=== PATIENT | male | born 1940 | race Caucasian/White ===

== ENCOUNTER 2019-01-11 10:54 | Outpatient (CLI) | payer MEDICARE ==
--- NOTE | 2019-01-11 11:32 | RAD ---
LUMBAR SPINE 3 VIEWS: HISTORY: Pain. COMPARISON: None. FINDINGS: Five lumbar-type vertebral bodies. Lumbar spine vertebral body height is maintained. No fracture. There is straightening of normal lumbar lordosis. No spondylolisthesis or spondylolysis. Disk space heights are preserved. Incidental IVC filter is noted. Atherosclerosis of the aorta is identified. IMPRESSION: No radiographic evidence of significant degenerative change. POS: [facility]
== END 2019-01-11 10:55 | disposition home or self-care (01) ==
LOC: RAD-FRANK 10:54
PROVIDERS: ATTEND Nurse Practitioner Family
DX: M54.5 Low back pain (principal)
CPT/HCPCS: 72100

== ENCOUNTER 2019-04-14 11:37 | Outpatient (CLI) | payer MEDICARE ==
--- NOTE | 2019-04-14 12:10 | RAD ---
2 views of the chest: 04/14/2019 COMPARISON: 10/14/2016 HISTORY: Palpitations FINDINGS: No pneumothorax or pleural fluid is seen. There is no focal consolidation or alveolar edema . There is increased linear density in the right lung base suggesting scar stable scar with stable blunting of the costophrenic angle on the left. Heart and mediastinal contours are unchanged. Right l shaun is clear. Coronary arterial calcification and/or stent material present. IMPRESSION: Stable appearance of the chest demonstrating chronic findings as above.
== END 2019-04-14 11:38 | disposition home or self-care (01) ==
LOC: RAD-FRANK 11:37
PROVIDERS: ATTEND Nurse Practitioner Family
DX: R00.2 Palpitations (principal); J98.4 Other disorders of lung
CPT/HCPCS: 71046

== ENCOUNTER 2020-03-20 14:52 | Inpatient (IN) | payer MEDICARE ==
--- NOTE | 2020-03-20 15:31 | RAD ---
EXAM: Single view of the chest HISTORY: Chest pain COMPARISON: 05/14/2019 FINDINGS: Single view of the chest shows a normal sized cardiomediastinal silhouette. The patient is status post sternotomy. There is no evidence of consolidation, mass, or pleural effusion. The bones are unremarkable. IMPRESSION: No evidence of acute cardiopulmonary disease
[2020-03-20 16:17] LABS: #Basophils 0.1 thou/uL (0.0-0.2); #Lymphocytes 1.4 thou/uL (1.20-3.40); #Monocytes 0.5 thou/uL (0.11-0.59); #Neutrophils 7.1 thou/uL (1.40-6.50); %Basophils 0.8 % (0.0-1.0); %Eosinophils 0.3 % (0.0-10.0); %Lymphocytes 15.2 % (21.0-51.0); %Monocytes 5.3 % (0.0-10.0); %Neutrophils 78.5 % (42.0-75.0); Hemoglobin 14.8 g/dL (14.0-18.0); Mean Corpuscular Hemoglobin 32.6 pg (27.0-31.0); Mean Corpuscular Volume 95.7 fL (78.0-98.0); Mean Platelet Volume 8.8 fL (7.4-10.4); Platelet Count 189 thou/uL (130-400); RBC Distribution Width 12.8 % (11.5-14.5); Red Blood Cell (RBC) Count 4.56 mill/uL (4.70-6.10)
[2020-03-20 16:39] LABS: ALT (SGPT) 14 U/L (8-55); AST (SGOT) 18 U/L (5-34); Albumin 3.8 g/dL (3.4-4.8); Alkaline Phosphatase 70 U/L (40-110); Anion Gap 13 mmol/L (10-20); BUN (Urea Nitrogen) 14 mg/dL (8.4-25.7); Bilirubin, Total 0.9 mg/dL (0.2-1.2); Calc. Creatinine Clearance 0 mL/min (70-130); Calcium 9.1 mg/dL (7.8-10.44); Carbon Dioxide 22 mmol/L (23-31); Chloride 106 mmol/L (98-107); Estimated GFR-MDRD 69; Globulin 2.4 g/dL (2.4-3.5); Glucose 147 mg/dL (83-110); Potassium 3.8 mmol/L (3.5-5.1); Protein, Total 6.2 g/dL (5.8-8.1); Sodium 137 mmol/L (136-145)
[2020-03-20 18:34] VITALS: BMI 18.2
[2020-03-20] MEDS ORDERED: Acetaminophen 325 MG TAB PO PRN ×2 (18:36→18:55)
[2020-03-20] MEDS ORDERED: Ondansetron PF 4 MG/2 ML Vial IVP PRN (18:36)
[2020-03-20] MEDS ORDERED: Ondansetron ODT 4 MG TAB SL PRN (18:36)
[2020-03-20] MEDS ORDERED: Nitroglycerin 0.4 MG TAB (25 Tab Bottle) PO PRN (18:55)
[2020-03-20] MEDS ORDERED: Ondansetron ODT 4 MG TAB PO PRN (18:55)
[2020-03-20] MEDS ORDERED: traMADol HCl 50 MG TAB PO SCH (19:15)
--- NOTE | 2020-03-20 20:05 | HP ---
PRIMARY CARE PROVIDER: Nurse practitioner, maricel Flores Jesus. CHIEF COMPLAINT: Back pain. HISTORY OF PRESENT ILLNESS: This is a 79-year-old male, with history of coronary artery disease and CABG in April 2019; hypertension; dyslipidemia; and chronic osteoarthritis, on tramadol, who presents to the emergency room with a chief complaint of back pain. Patient reports it started 5 to 6 months ago approximately one month after his CABG. It is located in between his shoulder blades, and he describes it as a pressure or pushing sensation. He denies any radiation, states that the pain is constant, however, states it is completely relieved with lying flat. He reports the onset of pain with about 30 steps and denies any pain prior to that. He also has pain with any physical activity that is relieved with lying flat. He denies any nausea or vomiting, denies any cough or shortness of breath, denies any other precipitating or relieving factors. Patient has osteoarthritis in his legs, hips, and arms, for which he takes tramadol and Aleve 4 times a day. He also complains in the emergency room today that he "blacked out for" for a few seconds. States time passed by for about a minute that he was not aware. He denies any positional changes associated with that. Patient reports that when the pain is worse that he feels dizzy. He denies any spinning sensation in the room, denies any vision changes. The pain is as severe as 8 or 9/10, currently it is 4/10. Patient also complains of occasional chest pain, however, not significant in comparison to the back pain. In the emergency room, patient was evaluated, he did not receive any medication , and hospitalist called for admission. PAST MEDICAL HISTORY: 1. Coronary artery disease with history of CABG. 2. Hypertension. 3. Dyslipidemia. 4. Osteoarthritis. PAST SURGICAL HISTORY: 1. Coronary artery stent placement in 2004. 2. CABG in April 2019. FAMILY HISTORY: Significant for a brother with diabetes and hypertension. SOCIAL HISTORY: Patient lives alone. He denies alcohol or tobacco, his brother is his surrogate decision maker. He is a full code. CURRENT MEDICATIONS: Reconciled with the bottles. 1. Lisinopril 10 mg daily. 2. Atorvastatin 10 mg daily. 3. Tramadol 50 mg two tablets scheduled four times a day. 4. Aspirin 325 mg daily. 5. Magnesium, unknown dose, t.i.d. 6. Aleve 1 tablet four times a day. ALLERGIES: NO ALLERGIES TO MEDICATION. REVIEW OF SYSTEMS: Positive for constipation; backing out episode, which is not well described in the emergency room today; and some intermittent chest pain. Negative for fevers, chills, cough, nausea, vomiting, or abdominal pain. All remaining review of systems are reviewed and negative. PHYSICAL EXAMINATION: VITAL SIGNS: Temp 98.0, pulse 66, respirations 19, sat 98% on room air, and blood pressure 129/71. GENERAL: Awake, alert, and responsive, in no apparent distress. Able to speak in full sentences. HEENT: His pupils are equal and round. No scleral icterus. NECK: Supple and nontender. No audible carotid bruits. LYMPHATICS: No palpable cervical or supraclavicular lymphadenopathy. LUNGS: Clear to auscultation, bilateral. No audible wheezing, rhonchi, or rales. HEART: Normal S1, S2. Regular rate and rhythm. No significant murmurs. ABDOMEN: Soft. Present bowel sounds. Nontender and nondistended. EXTREMITIES: No clubbing, cyanosis, or edema. BACK EXAM: He does have a curvature to the right in the mid thoracic area. No tenderness to palpation and no other visible or palpable abnormalities. VASCULAR: He has 2+ radial pulses. SKIN: No visible rashes. NEUROLOGIC: No focal deficits. PSYCH: Appears euthymic. LABORATORY DATA: Reviewed. CBC; 9, 14.8, 43.6, and 189. Renal panel; 137, 3.8, 106, 22, 14, 1.04, and 147. LFTs are normal. BNP 123. Troponin is negative. Chest x-ray is personally reviewed. No acute process. EKG. It is a left axis deviation, sinus rhythm, abnormal R-wave progression, no ST changes. IMPRESSION: 1. Back pain in a gentleman with curvature on exam, as well as a cardiac history. 2. Intermittent chest pain in a post coronary artery bypass grafting patient. 3. Hypertension, appears controlled. 4. Osteoarthritis. 5. Dyslipidemia. 6. Constipation. PLAN: 1. Observation status in the hospital. 2. Check troponins tonight, echocardiogram, Cardiology consultation. 3. MRI of the thoracic spine to evaluate for source of the back pain. 4. Continuing his usual home medications. Add p.r.n. nitroglycerin. 5. Continue the tramadol scheduled for pain. 6. Heart-healthy diet. 7. Bowel medications. We will schedule and add p.r.n. options. 8. DVT prophylaxis. He is ambulatory. 9. GI prophylaxis. As the patient is on chronic NSAIDs, we will add a Protonix and see if that changes any of his symptoms. 10. Code status is full. Surrogate decision maker is the patient's brother. 11. Anticipated length of stay is less than two midnights. Reviewed the plan of care with the patient, who demonstrates understanding and agrees. No questions or further needs at the end of evaluation. Job ID: [id number] [facility]
[2020-03-20] MEDS: Senokot S 8.6-50 MG TAB PO SCH (20:36)
[2020-03-20] MEDS: Atorvastatin Calcium 10 MG TAB PO SCH (20:36)
[2020-03-20] MEDS ORDERED: Aspirin 325 MG TAB PO SCH (21:00)
[2020-03-21] MEDS: traMADol HCl 50 MG TAB PO SCH ×5 (00:11→23:14)
[2020-03-21 05:22] LABS: Anion Gap 12 mmol/L (10-20); BUN (Urea Nitrogen) 15 mg/dL (8.4-25.7); Calc. Creatinine Clearance 58 mL/min (70-130); Calcium 8.7 mg/dL (7.8-10.44); Carbon Dioxide 25 mmol/L (23-31); Chloride 106 mmol/L (98-107); Estimated GFR-MDRD Greater than 90; Glucose 89 mg/dL (83-110); Potassium 3.6 mmol/L (3.5-5.1); Sodium 139 mmol/L (136-145)
[2020-03-21] MEDS ORDERED: ADENOSINE 60 MG/20 ML VIAL ONE (09:29)
--- NOTE | 2020-03-21 13:12 | NM ---
EXAM: NM Cardiac Stress W EF WF PROVIDED CLINICAL HISTORY: Chest pain COMPARISON: 10/14/2016 FINDINGS: There is decreased uptake of radiotracer with overall fixed defects involving the distal anterior wal l as well as involving the mid and distal inferior left ventricular wall and distal septum. Quantitative analysis demonstrates minimal reversibility adjacent to regions of fixed defect. Gated i mages demonstrate hypokinesis involving the septum with diminished thickening seen involving the distal anterior and inferior left ventricular teresa. Calculated left ventricular ejection fraction is 51% which is stable compared to study in 2017. IMPRESSION: 1. Abnormal myocardial perfusion study with scarring involving the distal anterior and inferior left ventricular teresa. Findings are suggestive of infarction in these regions with minimal wilbur-infarct ischemia present. 2. Left ventricular ejection fraction of 51% which is stable compared to study in 2017.
--- NOTE | 2020-03-21 13:24 | MRI ---
Exam: Thoracic spine MRI without contrast HISTORY: Midthoracic back pain. COMPARISON: None FINDINGS: Appropriate T1 marrow signal intensity of the thoracic vertebra. Thoracic spine vertebral b shaila heights are maintained. No fracture. Intrinsic T1 and T2 hyperintense lesion in the T2 and T5 compatible with osseous hemangiomas. No significant STIR hyperintensity to suggest vertebral body faisal ma or ligamentous injury Axial images are limited due to motion degradation. No mediastinal mass. No lung parenchymal abnormal ities. Visualized solid organs and paraspinal muscles have a normal appearance The visualized thoracic cord has a normal size and signal intensity. No obvious cord malacia or cord expansion. Conus medullaris terminates beyond the mid T12 level. Grossly throughout the central spinal canal there is no significant stenosis. Thoracic neural foramina are patent. Sand Tester images for localization of restricted fusion of the lower cervical spine, incompletely evaluate d IMPRESSION: 1. Limited evaluation on the axial images due to motion degradation. No significant central canal marcelo nosis or significant neural foraminal narrowing. 2. Possible fusion of the lower cervical spine, incompletely evaluated.
[2020-03-21] MEDS: Aspirin 325 MG TAB PO SCH (13:34)
[2020-03-21] MEDS: Lisinopril 10 MG TAB PO SCH (13:34)
[2020-03-21] MEDS: Senokot S 8.6-50 MG TAB PO SCH ×2 (13:35→20:21)
[2020-03-21] MEDS: Polyethylene Glycol 3350 17 GM Packet PO SCH (13:35)
--- NOTE | 2020-03-21 17:31 | PDOC.HOSPP ---
- Subjective Encounter Date: 03/21/20 (f/u back pain) Encounter Time: 17:30 Subjective: 79 y/o male with hx of CAD/CABG admitted yesterday for back pain with exertion relieved by rest and laying flat. Pt denies any pain currently. Denies any problems breathing, n/v/abd pain. He reports the feeling is tightness between his scapula when it occurs. - Objective Vital Signs & Weight: Vital Signs (12 hours) Temp Pulse Resp BP Pulse Ox 03/21/20 16:03 98.5 F 78 10 L 127/72 97 03/21/20 15:03 98.0 F 86 18 121/68 97 03/21/20 13:29 98.6 F 72 18 136/74 96 03/21/20 08:34 99 03/21/20 07:21 97.9 F 67 17 141/83 H 99 Weight Admit Weight 123 lb 9.6 oz Weight 123 lb 9.6 oz I&O: 03/20/20 03/21/20 03/22/20 06:59 06:59 06:59 Intake Total 240 Output Total 600 Balance -360 Result Diagrams: 03/20/20 16:03 03/21/20 04:01 Radiology Reviewed by me: Yes (MRI thoracic spine - no significant abnormality) EKG Reviewed by me: Yes (tele - sinus 60's) Hospitalist ROS - Medication Medications: Active Medications Generic Name Dose Route Start Last Admin Trade Name Freq PRN Reason Stop Dose Admin Aspirin 325 mg 03/21/20 09:00 03/21/20 13:34 Aspirin PO 325 mg DAILY ALICE Administration Atorvastatin Calcium 10 mg 03/20/20 21:00 03/20/20 20:36 Lipitor PO 10 mg HS ALICE Administration Lisinopril 10 mg 03/21/20 09:00 03/21/20 13:34 Zestril PO 10 mg DAILY ALICE Administration Pantoprazole Sodium 40 mg 03/20/20 21:00 03/20/20 20:36 Protonix PO 40 mg HS ALICE Administration Polyethylene Glycol 17 gm 03/21/20 09:00 03/21/20 13:35 Miralax PO 17 gm DAILY ALICE Administration Senna/Docusate Sodium 2 tab 03/20/20 21:00 03/21/20 13:35 Senokot S PO 2 tab BID ALICE Administration Tramadol HCl 100 mg 03/20/20 23:59 03/21/20 13:35 Ultram PO 100 mg Q6HR ALICE Administration - Exam General Appearance: NAD Heart: RRR, no murmur Respiratory: CTAB, no wheezes, no rales, no ronchi Gastrointestinal: soft, non-tender, non-distended, normal bowel sounds Extremities: no cyanosis, no clubbing, no edema Psychiatric: normal affect Hosp A/P (1) Back pain Code(s): M54.9 - DORSALGIA, UNSPECIFIED Status: Chronic Qualifiers: Back pain location: thoracic back pain Back pain laterality: midline (2) Chest pain Code(s): R07.9 - CHEST PAIN, UNSPECIFIED Status: Acute Qualifiers: Chest pain type: unspecified Qualified Code(s): R07.9 - Chest pain, unspecified (3) Dyslipidemia Code(s): E78.5 - HYPERLIPIDEMIA, UNSPECIFIED Status: Chronic (4) Constipation Code(s): K59.00 - CONSTIPATION, UNSPECIFIED Status: Chronic Qualifiers: Constipation type: unspecified constipation type Qualified Code(s): K59.00 - Constipation, unspecified (5) Osteoarthritis Code(s): M19.90 - UNSPECIFIED OSTEOARTHRITIS, UNSPECIFIED SITE Status: Chronic Qualifiers: Osteoarthritis location: unspecified site (6) CAD (coronary artery disease) Code(s): I25.10 - ATHSCL HEART DISEASE OF [place] CORONARY ARTERY W/O ANG PCTRS Status: Chronic Qualifiers: Coronary Disease-Associated Artery/Lesion type: bypass graft (7) HTN (hypertension) Code(s): I10 - ESSENTIAL (PRIMARY) HYPERTENSION Status: Chronic Qualifiers: Hypertension type: essential hypertension Qualified Code(s): I10 - Essential (primary) hypertension - Plan Back pain - exertional, relieved with rest and no significant findings on MRI. - Abnormal stress test - uncertain if this is new or expected post-CABG -> Cardiology consulted - echo pending continue current meds as ordered dvt prophy - ambulatory gi prophy - not indicated code status full reviewed plan of care with patient, no questions or further needs at end of eval.
[2020-03-21] MEDS: Atorvastatin Calcium 10 MG TAB PO SCH (20:21)
[2020-03-21] MEDS ORDERED: Prevnar 13-Val Conj/PF 0.5 ML SYRINGE IM ONE (21:00)
[2020-03-22] MEDS: traMADol HCl 50 MG TAB PO SCH ×4 (05:37→23:35)
--- NOTE | 2020-03-22 07:53 | PDOC.HOSPP ---
- Subjective Encounter Date: 03/22/20 (f/u back pain) Encounter Time: 07:51 Subjective: 79 y/o male admitted from the ER for back pain with exertion relieved by rest that has progressively worsened. Since admission, pt with abnormal stress test , and MRI thoracic spine without any significant findings. Pt denies any pain or sx currently. He is sitting up, eating well. - Objective Vital Signs & Weight: Vital Signs (12 hours) Temp Pulse Resp BP Pulse Ox 03/22/20 04:00 98.0 F 61 18 131/67 97 03/21/20 23:16 136/81 Weight Admit Weight 123 lb 9.6 oz Weight 123 lb 9.6 oz I&O: 03/21/20 03/22/20 03/23/20 06:59 06:59 06:59 Intake Total 240 480 Output Total 600 Balance -360 480 Result Diagrams: 03/20/20 16:03 03/21/20 04:01 EKG Reviewed by me: Yes (tele - sinus 60-80's) Hospitalist ROS - Medication Medications: Active Medications Generic Name Dose Route Start Last Admin Trade Name Freq PRN Reason Stop Dose Admin Acetaminophen 650 mg 03/20/20 18:55 03/21/20 18:09 Tylenol PO 650 mg Q4H PRN Administration Headache/Fever/Mild Pain (1-3) Aspirin 325 mg 03/21/20 09:00 03/21/20 13:34 Aspirin PO 325 mg DAILY ALICE Administration Atorvastatin Calcium 10 mg 03/20/20 21:00 03/21/20 20:21 Lipitor PO 10 mg HS ALICE Administration Lisinopril 10 mg 03/21/20 09:00 03/21/20 13:34 Zestril PO 10 mg DAILY ALICE Administration Pantoprazole Sodium 40 mg 03/20/20 21:00 03/21/20 20:21 Protonix PO 40 mg HS ALICE Administration Polyethylene Glycol 17 gm 03/21/20 09:00 03/21/20 13:35 Miralax PO 17 gm DAILY ALICE Administration Senna/Docusate Sodium 2 tab 03/20/20 21:00 03/21/20 20:21 Senokot S PO 2 tab BID ALICE Administration Tramadol HCl 100 mg 03/20/20 23:59 03/22/20 05:37 Ultram PO 100 mg Q6HR ALICE Administration - Exam General Appearance: NAD Heart: RRR, no murmur Respiratory: CTAB, no wheezes, no rales, no ronchi Gastrointestinal: soft, non-tender, non-distended, normal bowel sounds Extremities: no cyanosis, no clubbing, no edema Musculoskeletal: normal tone Psychiatric: normal affect Hosp A/P (1) Unstable angina Status: Acute (2) Back pain Code(s): M54.9 - DORSALGIA, UNSPECIFIED Status: Chronic Qualifiers: Back pain location: thoracic back pain Back pain laterality: midline (3) Chest pain Code(s): R07.9 - CHEST PAIN, UNSPECIFIED Status: Acute Qualifiers: Chest pain type: unspecified Qualified Code(s): R07.9 - Chest pain, unspecified (4) Dyslipidemia Code(s): E78.5 - HYPERLIPIDEMIA, UNSPECIFIED Status: Chronic (5) Constipation Code(s): K59.00 - CONSTIPATION, UNSPECIFIED Status: Chronic Qualifiers: Constipation type: unspecified constipation type Qualified Code(s): K59.00 - Constipation, unspecified (6) Osteoarthritis Code(s): M19.90 - UNSPECIFIED OSTEOARTHRITIS, UNSPECIFIED SITE Status: Chronic Qualifiers: Osteoarthritis location: unspecified site (7) CAD (coronary artery disease) Code(s): I25.10 - ATHSCL HEART DISEASE OF [place] CORONARY ARTERY W/O ANG PCTRS Status: Chronic Qualifiers: Coronary Disease-Associated Artery/Lesion type: bypass graft (8) HTN (hypertension) Code(s): I10 - ESSENTIAL (PRIMARY) HYPERTENSION Status: Chronic Qualifiers: Hypertension type: essential hypertension Qualified Code(s): I10 - Essential (primary) hypertension - Plan In review with Cardiology, sx are secondary to unstable angina. Pt with worsening anginal sx, a significant cardiac history with diffuse disease for which he has received stents and bypass in the past. Catheterization is not being considered at this time due to he diffuse nature of the CAD. Given his age, sx with minimal exertion, progressive sx, the patient needs to remain in the hospital for initiatio of medication under the direct supervision of the cellular phone repairer. For this reason, he is being placed in inpatient status. this cannot be performed at a lower level of care. Medications adjusted by Dr. Jackson, monitor for response. Fasting lipid panel ordered for am. Continue usual home meds. Pt requesting tess to take with tramadol as he does at home - not rx due to potential negative effects on his heart. dvt prophy - ambulatory gi prophy - not indicated code status - full Pt evaluated this morning - and reviewed the plan of care to await Dr. Jackson's recommendations. Above is the plan of care with those recommendations.
[2020-03-22] MEDS: Polyethylene Glycol 3350 17 GM Packet PO SCH (07:56)
[2020-03-22] MEDS: Lisinopril 10 MG TAB PO SCH (07:57)
[2020-03-22] MEDS: Aspirin 325 MG TAB PO SCH (07:57)
[2020-03-22] MEDS: Senokot S 8.6-50 MG TAB PO SCH ×2 (07:57→20:59)
[2020-03-22] MEDS ORDERED: Amlodipine 5 MG TAB PO SCH (10:00)
--- NOTE | 2020-03-22 10:28 | CON ---
DATE OF CONSULTATION: 03/22/2020 REASON FOR CONSULTATION: Intractable angina. HISTORY OF PRESENT ILLNESS: Mr. Johnson is a very pleasant 79-year-old man, who has been having mostly back pain with exertion, progressively worse over the last several months. This is going to the point with any type of moderate exertion and he will have to lie down and wait as long as 15 minutes until the back pain resolves. The patient does have a long history of coronary artery disease. He has had multiple stents implanted in his coronary arteries. Ultimately, he underwent cardiac catheterization and was found to have diffuse three-vessel atherosclerosis and catheterization and underwent surgery of three vessel. The patient had very large amount of his LAD stented LAD can only be bypassed at the apex. The distal circumflex is bypassed and posterolateral branch of the right coronaries bypassed, but they were all diffusely diseased vessels. The patient does not smoke or use tobacco products. MEDICATIONS: At home, he was taking; 1. Aspirin. 2. Tramadol. 3. Lisinopril. 4. Atorvastatin. ALLERGIES: NONE KNOWN. SOCIAL HISTORY: No alcohol or tobacco. REVIEW OF SYSTEMS: CONSTITUTIONAL: No significant weight gain or loss. VISION: No changes. HEARING: No changes. PULMONARY: No cough or wheezing. GASTROINTESTINAL: No nausea, vomiting, or diarrhea. SKIN: No rashes. NEUROLOGIC: No unilateral weakness or numbness. PSYCHIATRIC: No unusual depression or anxiety. PHYSICAL EXAMINATION: GENERAL: On examination, this is a very pleasant elderly 79-year-old gentleman, looks his chronologic age. VITAL SIGNS: Blood pressure 140/80, pulse is in the 80s now. LUNGS: Clear. CARDIAC: Normal S1. Normal S2. ABDOMEN: Soft and nontender. EXTREMITIES: Warm and dry. No clubbing or cyanosis. There is no edema. He has good femoral pulses. PERTINENT LABORATORIES: BNP 123.6, just slightly elevated. The LDL cholesterol from last year was 59. Troponin levels were normal. 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 Stress test revealed a fixed defect at the apex with just a minimal amount of wilbur-infarction ischemia. ASSESSMENT: 1. Diffuse three-vessel atherosclerosis. 2. Previous bypass surgery. 3. Hypertension. 4. Increasing amounts of angina. PLAN: I did review the cardiac catheterization films. It is not really clear to me whether further percutaneous intervention will be of any benefit to this gentleman. I could give him a trial of medical therapy first if he has intractable angina, consideration for catheterization, but as mentioned, it is not clear that any further percutaneous intervention will be helpful. We will start calcium blockers, beta-blockers, and Ranexa. I will check his lipid profile to see if his LDL cholesterol is controlled. If he is doing well, release him home tomorrow as mentioned. If he has intractable angina, we can bring him back for catheterization, but it is unclear whether further intervention will be feasible that would be beneficial to him. Job ID: [id number]
[2020-03-22] MEDS: Atorvastatin Calcium 10 MG TAB PO SCH (20:59)
[2020-03-23] MEDS: traMADol HCl 50 MG TAB PO SCH (05:23)
[2020-03-23 05:29] LABS: Anion Gap 10 mmol/L (10-20); BUN (Urea Nitrogen) 10 mg/dL (8.4-25.7); Calc. Creatinine Clearance 67 mL/min (70-130); Calcium 8.7 mg/dL (7.8-10.44); Carbon Dioxide 24 mmol/L (23-31); Cardiac Risk 2.4 (Less than 4.5); Chloride 106 mmol/L (98-107); Cholesterol 107 mg/dl (< 200 Desired); Estimated GFR-MDRD Greater than 90; Glucose 90 mg/dL (83-110); HDL Cholesterol 45 mg/dL (>60 Neg Risk); LDL Cholesterol, Calculated 49 mg/dL; Magnesium 1.8 mg/dL (1.6-2.6); Potassium 3.9 mmol/L (3.5-5.1); Sodium 136 mmol/L (136-145); Triglycerides 67 mg/dL (Less than 150)
[2020-03-23 05:49] LABS: Band 1 % (5-11); Eosinophils 3 % (0-10); Hemoglobin 13.4 g/dL (14.0-18.0); Lymphocytes 66 % (21-51); MDiff Complete? YES; Mean Corpuscular HGB CONC 33.8 g/dL (32.0-36.0); Mean Corpuscular Hemoglobin 32.2 pg (27.0-31.0); Mean Corpuscular Volume 95.3 fL (78.0-98.0); Mean Platelet Volume 8.6 fL (7.4-10.4); Monocytes 3 % (0-10); Neutrophil 26 % (42-75); Platelet Count 154 thou/uL (130-400); Platelet Morphology Comment Appears Adequate; RBC Distribution Width 12.8 % (11.5-14.5); Red Blood Cell (RBC) Count 4.16 mill/uL (4.70-6.10); White Blood Cell (WBC) Count 6.5 thou/uL (4.8-10.8)
[2020-03-23] MEDS ORDERED: Amlodipine 5 MG TAB PO SCH (09:00)
--- NOTE | 2020-03-23 09:30 | PRG ---
DATE OF SERVICE: 03/23/2020 SUBJECTIVE: Mr. Johnson is feeling better. He is not having angina. OBJECTIVE: VITAL SIGNS: Blood pressure 157/79, pulse 58. LUNGS: Clear. CARDIAC: Normal S1, normal S2. ABDOMEN: Soft, nontender EXTREMITIES: There is no edema. Reviewed the cardiac catheterization films again yesterday. The patient has had three-vessel bypass and diffuse disease in his LAD. He proximal stents and mid stents with a gap between these stents. There are some diffuse atherosclerosis in that area. He had internal mammary placed more distally. It appears to be this distribution causing angina. At this time, I have recommended a trial of medical therapy to see if the angina could be controlled. I have added metoprolol succinate 25 mg a day. He is on lisinopril 10 mg a day, amlodipine 5 mg a day, Ranexa 500 mg twice a day, aspirin 325 mg twice a day, and he is on atorvastatin 10 mg at bedtime. The patient will be seen in the office in two or three weeks. If he is still having angina, consideration for catheterization could be done. If the internal mammary graft is not patent, it is possible that a stent would work in the mid LAD. If the internal mammary graft is patent, then medical therapy would appear to be the most likely continued therapy. The patient agrees with medical therapy at this time. If he has intractable angina, catheterization should be done. The LDL cholesterol is 49. Job ID: [id number]
[2020-03-23] MEDS: Senokot S 8.6-50 MG TAB PO SCH (09:54)
[2020-03-23] MEDS: Lisinopril 10 MG TAB PO SCH (10:00)
[2020-03-23] MEDS: Polyethylene Glycol 3350 17 GM Packet PO SCH (10:01)
[2020-03-23] MEDS: Aspirin 325 MG TAB PO SCH (10:01)
[2020-03-23 10:25] VITALS: TEMP 96.4
[2020-03-23 11:28] VITALS: BP 128/85
--- NOTE | 2020-03-23 18:06 | DIS ---
DATE OF ADMISSION: 03/22/2020 DATE OF DISCHARGE: 03/23/2020 DISCHARGE DISPOSITION: Home. FOLLOWUP: 1. Follow up with primary care physician at [facility] in 1 week. 2. Follow up with Dr. Jackson in 2 weeks. ALLERGIES: NO KNOWN DRUG ALLERGIES. DISCHARGE MEDICATIONS: 1. Amlodipine 5 mg daily. 2. Lisinopril 10 mg daily. 3. Lipitor 10 mg at bedtime. 4. Tramadol as directed. 5. Sublingual nitroglycerin as needed. 6. Aspirin 325 mg daily. 7. Toprol-XL 25 mg daily. 8. Protonix 40 mg at bedtime. 9. Ranexa 500 mg b.i.d. The patient was seen and examined on the day of discharge. Denies any new complaints. No chest pain, shortness of breath or palpitations reported. BRIEF HOSPITAL COURSE: The patient is a 79-year-old male with coronary artery disease status post CABG, presented to the emergency room with chest discomfort. Please refer to the history and physical for further details. The patient was admitted to the hospital with a diagnosis of chest discomfort consistent with unstable angina. The patient was monitored on the telemetry unit. His serial troponins remain negative. He was evaluated by Cardiology, Dr. Jackson. His medications have been optimized per Dr. Jackson's recommendation. An echocardiogram was obtained, that showed ejection fraction of 50% to 55% with akinesis of the apex with moderate mitral regurgitation, mild tricuspid regurgitation. Left atrium was [id number] dilated. The patient has been cleared by Cardiology for discharge. FINAL DIAGNOSES: 1. Chest discomfort consistent with unstable angina. 2. Coronary artery disease status post coronary artery bypass grafting. 3. Hypertension. 4. Dyslipidemia. 5. Constipation. 6. Chronic kidney disease, stage 2. 7. Degenerative joint disease. 8. Chronic pain syndrome. 9. Gastroesophageal reflux disease. The patient understands the above plan of care. The patient was advised to discontinue NSAID. The patient was advised to discontinue NSAID. Job ID: [id number]
== END 2020-03-23 11:25 | disposition home or self-care (01) | DRG 303 ==
LOC: ERS 14:52 → 2NO 16:56 → OBSVTOIN 03-22 21:13
PROVIDERS: ADMIT Family Medicine; ATTEND Family Medicine
DX: I25.110 Atherosclerotic heart disease of native coronary artery with unstable angina pectoris (principal); I08.1 Rheumatic disorders of both mitral and tricuspid valves; E78.5 Hyperlipidemia, unspecified; K59.00 Constipation, unspecified; N18.2 Chronic kidney disease, stage 2 (mild); M19.90 Unspecified osteoarthritis, unspecified site; I12.9 Hypertensive chronic kidney disease with stage 1 through stage 4 chronic kidney disease, or unspecified chronic kidney disease; K21.9 Gastro-esophageal reflux disease without esophagitis; M54.5 Low back pain; G89.4 Chronic pain syndrome; Z95.1 Presence of aortocoronary bypass graft; Z79.82 Long term (current) use of aspirin; Z79.899 Other long term (current) drug therapy; Z95.5 Presence of coronary angioplasty implant and graft
CPT/HCPCS: 36415; 71045; 72146; 78452; 80048; 80053; 80061; 83735; 83880; 84484; 85025; 93005; 93017; 93306; 94760; A9500; J0153

== ENCOUNTER 2023-06-10 11:10 | Outpatient (CLI) | payer MEDICARE | END 2023-06-10 11:11 | disposition home or self-care (01) | LOC: RAD-FRANK 11:10 | PROVIDERS: ATTEND Nurse Practitioner Family | DX: R63.6 Underweight (principal) | CPT/HCPCS: 71046 ==